=== PATIENT | male | born 1990 | race Two or more races ===

== ENCOUNTER 2020-05-23 23:57 | Emergency (ER) | payer OTHER ==
[~2020-05-23] VITALS: Ht 188 cm; Wt 99.8 kg
[2020-05-24] MEDS ORDERED: KETO10TA2 PO (01:36)
== END 2020-05-24 01:43 | disposition home or self-care (01) ==
LOC: ER 23:57
DX: S60.051A Contusion of right little finger without damage to nail, initial encounter (principal); W22.8XXA Striking against or struck by other objects, initial encounter; Y93.68 Activity, volleyball (beach) (court); Y92.89 Other specified places as the place of occurrence of the external cause; Y99.8 Other external cause status